=== PATIENT | male | born 1980 | race African-American/Black ===

== ENCOUNTER 2020-11-09 15:29 | Emergency (ER) | payer MEDICAID, OTHER ==
[~2020-11-09] VITALS: Ht 170.2 cm; Wt 95.3 kg
[2020-11-09 17:12] VITALS: BP 134/84
== END 2020-11-09 17:42 | disposition home or self-care (01) ==
LOC: EDH 15:29
DX: U07.1 COVID-19 (principal)
CPT/HCPCS: 71045; 87635; 87804 ×2; 99284; C9803

== ENCOUNTER 2023-03-18 07:02 | Emergency (ER) | payer BC, OTHER ==
[~2023-03-18] VITALS: Ht 172.7 cm; Wt 99.8 kg
[2023-03-18 07:11] VITALS: BP 133/101; PULSE 76; RESP 16
[2023-03-18 08:03] LABS: SARS-CoV-2, RNA, NAAT NEGATIVE SARS CoV-2 (NEGATIVE)
[2023-03-18 08:11] LABS: INFLUENZA TYPE A Negative For Type A (NEGATIVE); INFLUENZA TYPE B Negative For Type B (NEGATIVE)
[2023-03-18 08:35] LABS: RAPID GROUP A STREP positive (NEGATIVE)
[2023-03-18] MEDS ORDERED: AMOX250L PO (08:46)
== END 2023-03-18 09:09 | disposition home or self-care (01) ==
LOC: EDH 07:02
DX: J02.0 Streptococcal pharyngitis (principal); Z20.822 Contact with and (suspected) exposure to COVID-19
CPT/HCPCS: 87635; 87804; 87880